=== PATIENT | male | born 1935 | race Caucasian/White ===

== ENCOUNTER 2017-05-13 12:11 | Inpatient (IN) | payer OTHER, BC ==
[~2017-05-13] VITALS: Ht 170.2 cm; Wt 80.1 kg
[2017-05-13 15:52] VITALS: BP 172/85
[2017-05-13 16:58] LABS: POINT-OF-CARE METER ID UU13113712
[2017-05-13] MEDS ORDERED: PLAVIX75 MG PO (16:59)
[2017-05-13] MEDS ORDERED: COREG6.25 M1 PO (17:00)
[2017-05-13] MEDS ORDERED: LO-DOSE ASPIRIN81 M1 PO (17:00)
[2017-05-13] MEDS ORDERED: TRICOR48 MG PO (17:01)
[2017-05-13] MEDS ORDERED: CYMBALTA30 MG PO (17:01)
[2017-05-13] MEDS ORDERED: HYDROCHLOROTHIA25 MG PO (17:02)
[2017-05-13] MEDS ORDERED: LISINOPRIL20 MG PO (17:02)
[2017-05-13] MEDS ORDERED: PROTONIX40 MG PO (17:03)
[2017-05-13] MEDS ORDERED: MYRBETRIQ50 MG PO (17:03)
[2017-05-13] MEDS ORDERED: LIPITOR80 MG PO (17:04)
[2017-05-13] MEDS ORDERED: FLORASTOR250 MG PO (17:04)
[2017-05-13] MEDS ORDERED: CLONIDINE HCL0.1 MG PO (17:04)
[2017-05-13] MEDS ORDERED: NOVOLOG PE100 UNITS/ SC (17:06)
[2017-05-13] MEDS ORDERED: LEVEMIR100 UNIT/2 SC (17:07)
[2017-05-13] MEDS ORDERED: LANTUS 10100 UNITS/ SC (17:08)
[2017-05-13] MEDS ORDERED: B-12500 MC1 SL (17:09)
[2017-05-13] MEDS ORDERED: CRESTOR40 MG PO (17:50)
[2017-05-13 21:18] LABS: POINT-OF-CARE METER ID UU13113720
[2017-05-14 00:10] VITALS: BP 146/68
[2017-05-14 04:09] VITALS: BP 146/76
[2017-05-14 06:00] LABS: HEMATOCRIT 43.5 % (38.0-50.0); MCH 28.4 PG (29.0-34.0); MCV 83.3 FL (86-99); MEAN PLAT.VOLUME 11.3 uM^3 (9.0-12.4); PLATELET COUNT 137 K/uL (156-360); RBC DIS.WIDTH-CV 13.6 % (11.8-14.6); RBC DIS.WIDTH-SD 41.8 % (39-53); RED BLOOD COUNT 5.22 M/uL (4.00-5.50); WHITE BLOOD COUNT 7.3 K/uL (4.1-10.2)
[2017-05-14 06:28] LABS: ALKALINE PHOSPHATASE 36 IU/L (3-129); ANION GAP 11 MEQ/L (2-14); CHLORIDE 103 MEQ/L (99-109); GFR ESTIMATE (CALCULATED) 39 mL/min/; GLUCOSE 220 mg/dL (70-99); POTASSIUM 3.9 MEQ/L (3.7-5.4); SAMPLE HEMOLYSIS CHECK 0; SAMPLE ICTERIC CHECK 0; SAMPLE LIPEMIA CHECK 0; SODIUM 139 MEQ/L (136-147); TOTAL BILIRUBIN 0.6 MG/DL (0.0-1.0); UREA NITROGEN (BUN) 38 mg/dL (9-23)
[2017-05-14 07:51] LABS: POINT-OF-CARE METER ID UU13113712
[2017-05-14 11:12] LABS: POINT-OF-CARE METER ID UU13113712; POINT-OF-CARE USER ID AHSSSJB31
[2017-05-14 16:16] VITALS: BP 174/81
[2017-05-14 16:58] LABS: POINT-OF-CARE METER ID UU13113712
[2017-05-14 21:22] LABS: POINT-OF-CARE METER ID UU13113712
[2017-05-15 04:50] VITALS: BP 129/67
[2017-05-15 06:57] LABS: POINT-OF-CARE METER ID UU13113720
[2017-05-15 11:23] LABS: POINT-OF-CARE METER ID UU13113720
[2017-05-15 15:19] VITALS: BP 137/63
[2017-05-15 16:20] LABS: POINT-OF-CARE METER ID UU13113712
[2017-05-15 17:00] VITALS: BP 159/72
[2017-05-15 21:01] LABS: POINT-OF-CARE METER ID UU13113720
[2017-05-16 05:04] VITALS: BP 131/66
[2017-05-16 06:41] LABS: POINT-OF-CARE METER ID UU13113712
[2017-05-16 11:09] LABS: POINT-OF-CARE METER ID UU13113720
[2017-05-16 16:48] LABS: POINT-OF-CARE METER ID UU13113720
[2017-05-16 16:56] VITALS: BP 139/66
[2017-05-16 21:04] LABS: POINT-OF-CARE METER ID UU13113712
[2017-05-17 04:22] VITALS: BP 117/61
[2017-05-17 06:31] LABS: POINT-OF-CARE METER ID UU13113720; POINT-OF-CARE USER ID ENVGAF
[2017-05-17 11:21] LABS: POINT-OF-CARE METER ID UU13113720
[2017-05-17 15:34] VITALS: BP 116/63
[2017-05-17 16:22] LABS: POINT-OF-CARE METER ID UU13113720
[2017-05-17 20:38] LABS: POINT-OF-CARE METER ID UU13113720
[2017-05-18 05:41] VITALS: BP 179/86
[2017-05-18 07:40] LABS: POINT-OF-CARE METER ID UU13113712
[2017-05-18 07:59] VITALS: BP 156/75
[2017-05-18 12:04] LABS: POINT-OF-CARE METER ID UU13113712
[2017-05-18 15:53] VITALS: BP 107/59
[2017-05-18 16:58] LABS: POINT-OF-CARE METER ID UU13113712
[2017-05-18 21:20] LABS: POINT-OF-CARE METER ID UU13113720
[2017-05-19 07:34] LABS: POINT-OF-CARE METER ID UU13113712
[2017-05-19 11:40] LABS: POINT-OF-CARE METER ID UU13113720
[2017-05-19 15:00] VITALS: BP 134/93
[2017-05-19 16:49] LABS: POINT-OF-CARE METER ID UU13113720
[2017-05-19 16:51] VITALS: BP 136/84
[2017-05-19 21:33] LABS: POINT-OF-CARE METER ID UU13113712
[2017-05-20 05:40] VITALS: BP 115/71
[2017-05-20 07:07] LABS: POINT-OF-CARE METER ID UU13113712
[2017-05-20 11:12] LABS: POINT-OF-CARE METER ID UU13113720
[2017-05-20 15:26] LABS: ADD MIUA? YES; BILIRUBIN NEGATIVE; BLOOD NEGATIVE; COLOR YELLOW ((YELLOW)); GLUCOSE (STRIP) >=500; KETONES NEGATIVE; LEUKOCYTES MODERATE; NITRITE NEGATIVE; PROTEIN (STRIP) 100; SPECIFIC GRAVITY 1.011 (1.000-1.030); UROBILINOGEN 0.2 MG/DL (0.2-1.0)
[2017-05-20 16:24] LABS: EPITHELIAL CELLS RARE /HPF; MUCUS NONE SEEN /LPF; RED BLOOD CELLS 0-5 /HPF (0-5); WHITE BLOOD CELLS 15-20 /HPF (0-5)
[2017-05-20 16:24] LABS: POINT-OF-CARE METER ID UU13113712
[2017-05-20 16:25] LABS: BACTERIA 3+ /HPF; OTHER BUDDING YEAST
[2017-05-20 21:09] LABS: POINT-OF-CARE METER ID UU13113712
[2017-05-21 05:27] VITALS: BP 136/71
[2017-05-21 06:43] LABS: POINT-OF-CARE METER ID UU13113712; POINT-OF-CARE USER ID ENVGAF
[2017-05-21 11:44] LABS: POINT-OF-CARE METER ID UU13113712; POINT-OF-CARE USER ID ENVGAF
[2017-05-21 15:25] VITALS: BP 161/74
[2017-05-21 16:29] LABS: POINT-OF-CARE METER ID UU13113712; POINT-OF-CARE USER ID ENVGAF
[2017-05-21 18:28] VITALS: BP 132/64
[2017-05-21 21:29] LABS: POINT-OF-CARE METER ID UU13113720
[2017-05-22 05:30] VITALS: BP 143/74
[2017-05-22 06:48] LABS: POINT-OF-CARE METER ID UU13113720; POINT-OF-CARE USER ID ENVGAF
[2017-05-22 11:46] LABS: POINT-OF-CARE METER ID UU13113720; POINT-OF-CARE USER ID ENVGAF
[2017-05-22 16:15] VITALS: BP 109/71
[2017-05-22 16:18] LABS: POINT-OF-CARE METER ID UU13113720
[2017-05-22 21:17] LABS: POINT-OF-CARE METER ID UU13113720
[2017-05-23 05:24] VITALS: BP 144/71
[2017-05-23 07:28] LABS: POINT-OF-CARE METER ID UU13113720; POINT-OF-CARE USER ID AHSSSJB31
[2017-05-23 08:11] LABS: BASOPHIL COUNT 0.1 K/uL (0-0.1); EOSINOPHIL COUNT 0.1 K/uL (0-0.3); HEMATOCRIT 41.8 % (38.0-50.0); IMMATURE GRANULOCYTE (%) 0.5 % (0.0-0.7); INSTRUMENT ABS NEUTROPHIL CT 3.4 K/uL; LYMPHOCYTE COUNT 2.3 K/uL (1.0-2.8); MCH 29.6 PG (29.0-34.0); MCHC 35.2 G/DL (30.0-36.0); MCV 84.1 FL (86-99); MEAN PLAT.VOLUME 11.7 uM^3 (9.0-12.4); MONOCYTE (%) 10.1 % (3-12); MONOCYTE COUNT 0.7 K/uL (0-0.8); NEUTROPHIL (%) 51.5 % (45-76); NEUTROPHIL COUNT 3.4 K/uL (1.8-6.4); PLATELET COUNT 141 K/uL (156-360); RBC DIS.WIDTH-CV 13.7 % (11.8-14.6); RBC DIS.WIDTH-SD 42.1 % (39-53); RED BLOOD COUNT 4.97 M/uL (4.00-5.50); WHITE BLOOD COUNT 6.6 K/uL (4.1-10.2)
[2017-05-23 08:33] LABS: ALKALINE PHOSPHATASE 42 IU/L (3-129); ANION GAP 9 MEQ/L (2-14); CHLORIDE 103 MEQ/L (99-109); GFR ESTIMATE (CALCULATED) 31 mL/min/; GLUCOSE 145 mg/dL (70-99); POTASSIUM 4.3 MEQ/L (3.7-5.4); SAMPLE HEMOLYSIS CHECK 0; SAMPLE ICTERIC CHECK 0; SAMPLE LIPEMIA CHECK 0; SODIUM 139 MEQ/L (136-147); TOTAL BILIRUBIN 0.5 MG/DL (0.0-1.0); UREA NITROGEN (BUN) 63 mg/dL (9-23)
[2017-05-23 11:23] LABS: POINT-OF-CARE METER ID UU13113720; POINT-OF-CARE USER ID AHSSSJB31
[2017-05-23 14:46] LABS: ADD MIUA? YES; BILIRUBIN NEGATIVE; BLOOD NEGATIVE; COLOR YELLOW ((YELLOW)); GLUCOSE (STRIP) >=500; KETONES NEGATIVE; LEUKOCYTES SMALL; NITRITE NEGATIVE; PROTEIN (STRIP) 100; SPECIFIC GRAVITY 1.013 (1.000-1.030); UROBILINOGEN 0.2 MG/DL (0.2-1.0)
[2017-05-23 14:53] LABS: BACTERIA RARE /HPF; BUDDING YEAST 2+; EPITHELIAL CELLS RARE /HPF; MUCUS NONE SEEN /LPF; RED BLOOD CELLS 0-5 /HPF (0-5); WHITE BLOOD CELLS 20-30 /HPF (0-5)
[2017-05-23 15:09] VITALS: BP 100/52
[2017-05-23 16:55] LABS: POINT-OF-CARE METER ID UU13113720
[2017-05-23 19:35] LABS: URINE TOTAL PROTEIN 64 MG/DL (0-10)
[2017-05-23 21:04] LABS: POINT-OF-CARE METER ID UU13113720
[2017-05-24 05:11] VITALS: BP 136/62
[2017-05-24 07:36] LABS: POINT-OF-CARE METER ID UU13113720
[2017-05-24 07:44] LABS: ANION GAP 9 MEQ/L (2-14); CHLORIDE 104 MEQ/L (99-109); GFR ESTIMATE (CALCULATED) 34 mL/min/; GLUCOSE 197 mg/dL (70-99); POTASSIUM 4.5 MEQ/L (3.7-5.4); SAMPLE HEMOLYSIS CHECK 0; SAMPLE ICTERIC CHECK 0; SAMPLE LIPEMIA CHECK 0; SODIUM 139 MEQ/L (136-147); UREA NITROGEN (BUN) 58 mg/dL (9-23)
[2017-05-24 11:39] LABS: POINT-OF-CARE METER ID UU13113720
[2017-05-24 14:58] VITALS: BP 138/62
[2017-05-24 15:51] LABS: POINT-OF-CARE METER ID UU13113720
[2017-05-24 21:47] LABS: POINT-OF-CARE METER ID UU13113720
[2017-05-25 05:16] VITALS: BP 162/77
[2017-05-25 07:39] LABS: ANION GAP 7 MEQ/L (2-14); CHLORIDE 106 MEQ/L (99-109); GFR ESTIMATE (CALCULATED) 39 mL/min/; GLUCOSE 197 mg/dL (70-99); POTASSIUM 4.3 MEQ/L (3.7-5.4); SAMPLE HEMOLYSIS CHECK 0; SAMPLE ICTERIC CHECK 0; SAMPLE LIPEMIA CHECK 0; SODIUM 139 MEQ/L (136-147); UREA NITROGEN (BUN) 54 mg/dL (9-23)
[2017-05-25 07:48] LABS: POINT-OF-CARE METER ID UU13113720
[2017-05-25 11:55] LABS: POINT-OF-CARE METER ID UU13113720
[2017-05-25 14:13] LABS: IFE GEL NO. CAPI
[2017-05-25 14:14] LABS: IFE GEL NO. 97-1
[2017-05-25 15:56] VITALS: BP 179/74
[2017-05-25 16:27] LABS: POINT-OF-CARE METER ID UU13113720
[2017-05-25 17:10] VITALS: BP 177/76
[2017-05-25 18:36] VITALS: BP 166/79
[2017-05-25 21:05] LABS: POINT-OF-CARE METER ID UU13113720
[2017-05-26 06:10] VITALS: BP 113/57
[2017-05-26 06:45] LABS: POINT-OF-CARE METER ID UU13113712; POINT-OF-CARE USER ID ENVGAF
[2017-05-26 07:47] LABS: ANION GAP 10 MEQ/L (2-14); CHLORIDE 107 MEQ/L (99-109); GFR ESTIMATE (CALCULATED) 41 mL/min/; GLUCOSE 131 mg/dL (70-99); MAGNESIUM 1.7 mg/dl (1.3-2.7); POTASSIUM 4.3 MEQ/L (3.7-5.4); SAMPLE HEMOLYSIS CHECK 0; SAMPLE ICTERIC CHECK 0; SAMPLE LIPEMIA CHECK 0; SODIUM 142 MEQ/L (136-147); UREA NITROGEN (BUN) 43 mg/dL (9-23)
[2017-05-26 12:05] LABS: POINT-OF-CARE METER ID UU13113712; POINT-OF-CARE USER ID ENVGAF
[2017-05-26 15:28] VITALS: BP 177/78
[2017-05-26 16:14] VITALS: BP 148/68
[2017-05-26 16:58] LABS: POINT-OF-CARE METER ID UU13113712
[2017-05-26 20:29] LABS: POINT-OF-CARE METER ID UU13113712
[2017-05-26 21:34] VITALS: BP 172/80
[2017-05-26 22:51] VITALS: BP 198/80
[2017-05-26 23:57] VITALS: BP 156/71
[2017-05-27 06:08] VITALS: BP 136/65
[2017-05-27 06:52] LABS: POINT-OF-CARE METER ID UU13113712; POINT-OF-CARE USER ID ENVGAF
[2017-05-27 07:08] LABS: ANION GAP 10 MEQ/L (2-14); CHLORIDE 106 MEQ/L (99-109); GFR ESTIMATE (CALCULATED) 41 mL/min/; GLUCOSE 163 mg/dL (70-99); POTASSIUM 4.1 MEQ/L (3.7-5.4); SAMPLE HEMOLYSIS CHECK 0; SAMPLE ICTERIC CHECK 0; SAMPLE LIPEMIA CHECK 0; SODIUM 140 MEQ/L (136-147); UREA NITROGEN (BUN) 41 mg/dL (9-23)
[2017-05-27 11:30] LABS: POINT-OF-CARE METER ID UU13113712; POINT-OF-CARE USER ID ENVGAF
[2017-05-27 15:11] VITALS: BP 140/64
[2017-05-27 16:29] LABS: POINT-OF-CARE METER ID UU13113720
[2017-05-27 21:10] VITALS: BP 181/79
[2017-05-27 21:14] LABS: POINT-OF-CARE METER ID UU13113720
[2017-05-28 05:08] VITALS: BP 136/66
[2017-05-28 07:32] LABS: ANION GAP 7 MEQ/L (2-14); CHLORIDE 106 MEQ/L (99-109); GFR ESTIMATE (CALCULATED) 39 mL/min/; GLUCOSE 207 mg/dL (70-99); POTASSIUM 4.1 MEQ/L (3.7-5.4); SAMPLE HEMOLYSIS CHECK 0; SAMPLE ICTERIC CHECK 0; SAMPLE LIPEMIA CHECK 0; SODIUM 139 MEQ/L (136-147); UREA NITROGEN (BUN) 49 mg/dL (9-23)
[2017-05-28 08:00] VITALS: BP 136/70
[2017-05-28 12:14] LABS: POINT-OF-CARE METER ID UU13113720; POINT-OF-CARE USER ID AHSSSJB31
[2017-05-28 15:39] VITALS: BP 153/67
[2017-05-28 16:45] LABS: POINT-OF-CARE METER ID UU13113712
[2017-05-28 21:21] LABS: POINT-OF-CARE METER ID UU13113712
[2017-05-29 04:45] VITALS: BP 136/63
[2017-05-29 07:31] LABS: POINT-OF-CARE METER ID UU13113712; POINT-OF-CARE USER ID AHSSSJB31
[2017-05-29 07:50] LABS: INTACT PARATHYROID HORMONE 41 pg/mL (10-69)
[2017-05-29 12:14] LABS: POINT-OF-CARE METER ID UU13113712; POINT-OF-CARE USER ID AHSSSJB31
[2017-05-29 15:42] VITALS: BP 129/60
[2017-05-29 16:37] LABS: POINT-OF-CARE METER ID UU13113712
[2017-05-29 21:11] LABS: POINT-OF-CARE METER ID UU13113720
[2017-05-30 05:42] VITALS: BP 163/75
[2017-05-30 06:58] LABS: POINT-OF-CARE METER ID UU13113712; POINT-OF-CARE USER ID ENVGAF
[2017-05-30 11:28] LABS: POINT-OF-CARE METER ID UU13113712; POINT-OF-CARE USER ID ENVGAF
[2017-05-30 15:14] VITALS: BP 188/84
[2017-05-30 16:40] LABS: POINT-OF-CARE METER ID UU13113712
[2017-05-30 17:59] VITALS: BP 168/71
[2017-05-30 21:05] LABS: POINT-OF-CARE METER ID UU13113712
[2017-05-31 04:27] VITALS: BP 155/70
[2017-05-31 06:36] LABS: POINT-OF-CARE METER ID UU13113712; POINT-OF-CARE USER ID ENVGAF
[2017-05-31 11:06] LABS: POINT-OF-CARE METER ID UU13113712
[2017-05-31 15:54] VITALS: BP 199/91
[2017-05-31 16:33] LABS: POINT-OF-CARE METER ID UU13113720
[2017-05-31 17:00] VITALS: BP 164/70
[2017-05-31 21:19] LABS: POINT-OF-CARE METER ID UU13113712
[2017-05-31 21:30] VITALS: BP 160/70
[2017-06-01 05:07] VITALS: BP 128/60
[2017-06-01 06:55] LABS: POINT-OF-CARE METER ID UU13113720; POINT-OF-CARE USER ID ENVGAF
[2017-06-01 08:55] VITALS: BP 136/70
[2017-06-01 11:37] LABS: POINT-OF-CARE METER ID UU13113712
[2017-06-01 15:41] VITALS: BP 143/89
[2017-06-01 17:11] LABS: POINT-OF-CARE METER ID UU13113712
[2017-06-01 21:16] LABS: POINT-OF-CARE METER ID UU14174215; POINT-OF-CARE USER ID 609231305
[2017-06-02 05:39] VITALS: BP 128/65
[2017-06-02 08:00] LABS: POINT-OF-CARE METER ID UU14174215
[2017-06-02 11:51] LABS: POINT-OF-CARE METER ID UU14174215
[2017-06-02 15:37] VITALS: BP 174/72
[2017-06-02 15:43] VITALS: BP 150/70
[2017-06-02 16:53] LABS: POINT-OF-CARE METER ID UU14174215
[2017-06-02 20:58] LABS: POINT-OF-CARE METER ID UU14174215
[2017-06-03 05:12] VITALS: BP 144/60
[2017-06-03 07:23] LABS: POINT-OF-CARE METER ID UU13113720
[2017-06-03 11:53] LABS: POINT-OF-CARE METER ID UU13113720
[2017-06-03 15:10] VITALS: BP 129/61
[2017-06-03 16:01] LABS: POINT-OF-CARE METER ID UU14174215
[2017-06-03 21:30] LABS: POINT-OF-CARE METER ID UU13113720
[2017-06-04 04:58] VITALS: BP 128/72
[2017-06-04 06:54] LABS: POINT-OF-CARE METER ID UU13113720; POINT-OF-CARE USER ID ENVGAF
[2017-06-04 07:04] LABS: MCH 29.1 PG (29.0-34.0); MCHC 34.2 G/DL (30.0-36.0); MCV 85.2 FL (86-99); MEAN PLAT.VOLUME 11.6 uM^3 (9.0-12.4); NRBC (%) 0.7 /100 WBC (0-0); PLATELET COUNT 112 K/uL (156-360); RBC DIS.WIDTH-CV 13.8 % (11.8-14.6); RBC DIS.WIDTH-SD 42.4 % (39-53); RED BLOOD COUNT 4.46 M/uL (4.00-5.50); WHITE BLOOD COUNT 5.9 K/uL (4.1-10.2)
[2017-06-04 07:27] LABS: ANION GAP 11 MEQ/L (2-14); CHLORIDE 108 MEQ/L (99-109); POTASSIUM 4.2 MEQ/L (3.7-5.4); SAMPLE HEMOLYSIS CHECK 0; SAMPLE ICTERIC CHECK 0; SAMPLE LIPEMIA CHECK 0; SODIUM 139 MEQ/L (136-147); TOTAL BILIRUBIN 0.5 MG/DL (0.0-1.0)
[2017-06-04 07:33] LABS: ALKALINE PHOSPHATASE 48 IU/L (3-129); GFR ESTIMATE (CALCULATED) 48 mL/min/; GLUCOSE 173 mg/dL (70-99); UREA NITROGEN (BUN) 38 mg/dL (9-23)
[2017-06-04 11:19] LABS: POINT-OF-CARE METER ID UU14174215
[2017-06-04 15:53] VITALS: BP 142/60
[2017-06-04 16:45] LABS: POINT-OF-CARE METER ID UU14174215
[2017-06-04 21:47] LABS: POINT-OF-CARE METER ID UU14174215
[2017-06-05 04:52] VITALS: BP 136/64
[2017-06-05 06:51] LABS: POINT-OF-CARE METER ID UU13113720; POINT-OF-CARE USER ID ENVGAF
[2017-06-05] MEDS ORDERED: LO-DOSE ASPIRIN81 M1 PO (10:33)
[2017-06-05] MEDS ORDERED: GLIPIZIDE10 MG PO (10:33)
[2017-06-05] MEDS ORDERED: LEVEMIR100 UNIT/2 SC (10:33)
[2017-06-05] MEDS ORDERED: CARVEDILOL12.5 MG PO (10:33)
[2017-06-05] MEDS ORDERED: LISINOPRIL20 MG PO (10:33)
[2017-06-05] MEDS ORDERED: CRESTOR40 MG PO (10:33)
[2017-06-05] MEDS ORDERED: VITAMIN D2000 UNI1 PO (10:33)
[2017-06-05] MEDS ORDERED: PROTONIX40 MG PO (10:33)
[2017-06-05] MEDS ORDERED: CYMBALTA30 MG PO (10:33)
[2017-06-05] MEDS ORDERED: PLAVIX75 MG PO (10:33)
[2017-06-05] MEDS ORDERED: CLONIDINE HCL0.1 MG PO (10:33)
[2017-06-05] MEDS ORDERED: TRICOR48 MG PO (10:33)
[2017-06-05 11:58] LABS: POINT-OF-CARE METER ID UU13113720; POINT-OF-CARE USER ID ENVGAF
== END 2017-06-05 13:14 | DRG 57 ==
LOC: 3WEST 12:11 → ENPENDDIS 06-05 → 3WEST 06-05 13:14
PROVIDERS: Internal Medicine; Internal Medicine Nephrology; Physical Medicine & Rehabilitation Pain Medicine; Psychiatry & Neurology Neurology
PROC: F07M0ZZ Range of Motion and Joint Mobility Treatment of Musculoskeletal System - Whole Body (ICD-10-PCS; principal; 2017-05-13)
DX: I69.351 Hemiplegia and hemiparesis following cerebral infarction affecting right dominant side (principal); N17.9 Acute kidney failure, unspecified; I69.322 Dysarthria following cerebral infarction; I69.051 Hemiplegia and hemiparesis following nontraumatic subarachnoid hemorrhage affecting right dominant side; I69.022 Dysarthria following nontraumatic subarachnoid hemorrhage; I69.091 Dysphagia following nontraumatic subarachnoid hemorrhage; I69.391 Dysphagia following cerebral infarction; R13.10 Dysphagia, unspecified; I12.9 Hypertensive chronic kidney disease with stage 1 through stage 4 chronic kidney disease, or unspecified chronic kidney disease; N18.3 Chronic kidney disease, stage 3 (moderate); E83.52 Hypercalcemia; E11.21 Type 2 diabetes mellitus with diabetic nephropathy; E11.22 Type 2 diabetes mellitus with diabetic chronic kidney disease; I70.1 Atherosclerosis of renal artery; E78.5 Hyperlipidemia, unspecified; I25.10 Atherosclerotic heart disease of native coronary artery without angina pectoris; I65.29 Occlusion and stenosis of unspecified carotid artery; K21.9 Gastro-esophageal reflux disease without esophagitis; N40.0 Benign prostatic hyperplasia without lower urinary tract symptoms; M19.90 Unspecified osteoarthritis, unspecified site; I69.354 Hemiplegia and hemiparesis following cerebral infarction affecting left non-dominant side; Z93.3 Colostomy status; Z95.1 Presence of aortocoronary bypass graft; Z79.4 Long term (current) use of insulin; Z79.82 Long term (current) use of aspirin; Z79.84 Long term (current) use of oral hypoglycemic drugs; Z86.79 Personal history of other diseases of the circulatory system; Z87.01 Personal history of pneumonia (recurrent); Z88.5 Allergy status to narcotic agent; Z87.891 Personal history of nicotine dependence; Z82.3 Family history of stroke; Z83.3 Family history of diabetes mellitus; Z88.2 Allergy status to sulfonamides
CPT/HCPCS: 76770; 80048; 80053; 80069; 81003; 82306; 82436; 82570; 82948; 83735; 83970; 84156; 84300; 84540; 85025; 85027; 86334; 86335; 87086; 92507 GN; 92523 GN; 97110 GO; 97530 GP; 97532 GN; J1815